=== PATIENT | female | born 1970 | race African-American/Black ===

== ENCOUNTER 2017-06-07 07:41 | Emergency (ER) | payer OTHER ==
[~2017-06-07] VITALS: Ht 172.7 cm; Wt 70.3 kg
--- NOTE | ~2017-06-07 | EKG ---
[address] [place] [address] ELECTROCARDIOGRAM REPORT Name: MADELINDARLINE JACQUELINE [id number] Admission: 06/07/17 Attend Phys: Discharge: 06/07/17 Date of : 66 Report #: [id number] THIS REPORT FOR: //name// [facility] ED Test Date: 2017-06-07 Test Time: 07:56:30 Pat Name: DARLINE YUSUF Department: Room: Gender: F Extension Course Coordinator: SHAWN : 1970 Requested By: Paulina Huerta Order Number: [id number] MD: Derrick Lion Measurements Intervals [place] Rate: 51 P: 37 VA: 139 QRS: -15 QRSD: 93 T: 76 QT: 416 QTc: 384 Interpretive Statements Sinus rhythm Borderline left axis deviation Low voltage, extremity and precordial leads Baseline wander in lead(s) I,III,aVL Compared to ECG 05/15/2016 13:08:33 Poor R-wave progression no longer present Electronically Signed On 06-07-2017 20:21:05 CDT by Derrick Lion [email or web address] <ELECTRONICALLY SIGNED> By: Derrick Lion MD 06/07/172020 0756 075 Derrick Lion MD /EPI
[~2017-06-07 07:41] MED LIST: ADVAIR 100-501 EACH INH; ADVAIR HFA 230M12 GM INH; ALBUTEROL2.5 MG/0.5 INH; ATIVAN0.5 MG PO; BACTRIM DS TAB1 EACH PO; COMPAZINE5 MG PO; DUONEB 2.5-0.5 M3 ML INH; GUAIFENESIN DM1 EACH PO; IBUPROFEN 800800 M1 PO; INCRUSE ELLI62.5 MCG IH; LEVAQUIN 500 M500 M2 PO; LEVSIN PO; MEDROLDOSEPACK; MILK OF MA2400 MG/10 PO; NICOTINE TRANSD21 M1; NORCO 5-325 TA1 EACH PO; NORFLEX100 MG PO; PREDNISONE 10 M10 MG PO; PREDNISONE 20 M20 MG PO; PREDNISONE50 MG PO; PRILOSEC 20 MG20 MG PO; PROTONIX40 M1 PO; SINGULAIR 10 MG10 M1 PO; TRAMADOL 50 MG50 MG PO; ULTRAM 50MG TAB50 MG PO; WELLBUTRIN XL150 MG PO; nicotine patch TRANSDERM
[2017-06-07] MEDS ORDERED: MOXIFLOXACIN3 ML OPHTHALMIC (08:18)
[2017-06-07] MEDS ORDERED: PROAIR HFA8.5 GM INH (08:18)
[2017-06-07] MEDS ORDERED: PREDNISONE50 MG PO (08:18)
[2017-06-07 08:59] LABS: BASOPHILS 0.5 % (0.0-2.0); EOSINOPHILS 1.5 % (0.0-3.0); HEMATOCRIT 44.1 % (37.0-47.0); HEMOGLOBIN 15.1 gm/dL (12.0-15.0); LYMPHOCYTES 28.7 % (24.0-44.0); MCH 34.1 pg (26.0-34.0); MCHC 34.3 g/dL (28.0-37.0); MCV 99.4 fL (80.0-100.0); MONOCYTES 8.9 % (1.0-8.0); POLYS 60.4 % (36.0-66.0); RBC 4.44 mil/uL (4.20-5.00); RDW 13.5 % (10.5-14.5)
[2017-06-07 09:01] LABS: MANUAL DIFF NO
[2017-06-07 09:27] LABS: PLATELET COUNT 169 thou/uL (150-400)
[2017-06-07 10:13] LABS: ANION GAP 5 mmol/L (7-16); BUN 6 mg/dL (7-18); CALCIUM 8.8 mg/dL (8.5-10.1); CHLORIDE 104 mmol/L (98-107); CO2 27 mmol/L (21-32); CREATININE 0.9 mg/dL (0.6-1.0); GLUCOSE 105 mg/dL (74-106); POTASSIUM 3.7 mmol/L (3.5-5.1); SODIUM 136 mmol/L (136-145)
[2017-06-07 10:22] LABS: TROPONIN-I < 0.04 ng/mL (<0.04-0.07)
== END 2017-06-07 10:36 | disposition home or self-care (01) ==
LOC: ER 07:41
PROVIDERS: Emergency Medicine
DX: J06.9 Acute upper respiratory infection, unspecified (principal); J98.01 Acute bronchospasm; H10.9 Unspecified conjunctivitis; F17.210 Nicotine dependence, cigarettes, uncomplicated; F10.99 Alcohol use, unspecified with unspecified alcohol-induced disorder; Z90.49 Acquired absence of other specified parts of digestive tract; Z90.710 Acquired absence of both cervix and uterus; Z88.1 Allergy status to other antibiotic agents

== ENCOUNTER 2017-09-21 16:05 | Emergency (ER) | payer OTHER ==
[~2017-09-21] VITALS: Ht 172.7 cm; Wt 64.9 kg
[~2017-09-21 16:05] MED LIST changes: +MOXIFLOXACIN3 ML OPHTHALMIC; +PROAIR HFA8.5 GM INH
[2017-09-21] MEDS ORDERED: NAPROSYN500 MG PO (16:41)
[2017-09-21] MEDS ORDERED: BUTALB-APAP-CA1 EACH PO (16:41)
[2017-09-21 17:52] VITALS: BP 132/96
[2017-09-21 17:56] LABS: CALCIUM 9.1 mg/dL (8.5-10.1); CREATININE 0.8 mg/dL (0.6-1.0); POTASSIUM 4.3 mmol/L (3.5-5.1)
== END 2017-09-21 17:57 | disposition home or self-care (01) ==
LOC: ER 16:05
PROVIDERS: Emergency Medicine
DX: R04.0 Epistaxis (principal); R51 Headache; R25.2 Cramp and spasm; J44.9 Chronic obstructive pulmonary disease, unspecified; Z88.1 Allergy status to other antibiotic agents; F17.210 Nicotine dependence, cigarettes, uncomplicated; Z90.710 Acquired absence of both cervix and uterus; Z90.49 Acquired absence of other specified parts of digestive tract

== ENCOUNTER 2018-03-22 21:39 | Emergency (ER) | payer OTHER ==
[~2018-03-22] VITALS: Ht 172.7 cm; Wt 72.6 kg
[~2018-03-22 21:39] MED LIST changes: +BUTALB-APAP-CA1 EACH PO; +NAPROSYN500 MG PO
[2018-03-22] MEDS ORDERED: FLEXERIL PO (22:55)
[2018-03-22] MEDS ORDERED: MOBIC15 MG PO (22:55)
== END 2018-03-22 23:04 | disposition home or self-care (01) ==
LOC: ER 21:39
DX: M79.605 Pain in left leg (principal); Z71.1 Person with feared health complaint in whom no diagnosis is made; J44.9 Chronic obstructive pulmonary disease, unspecified; Z90.49 Acquired absence of other specified parts of digestive tract; Z90.710 Acquired absence of both cervix and uterus; F17.210 Nicotine dependence, cigarettes, uncomplicated; Z88.1 Allergy status to other antibiotic agents

== ENCOUNTER 2019-08-03 13:25 | Emergency (ER) | payer OTHER ==
[~2019-08-03] VITALS: Ht 172.7 cm; Wt 70.3 kg
[~2019-08-03 13:25] MED LIST changes: +FLEXERIL PO; +MOBIC15 MG PO
[2019-08-03 14:26] LABS: BASOPHILS 0.4 % (0.0-2.0); EOSINOPHILS 1.3 % (0.0-3.0); HEMATOCRIT 40.4 % (37.0-47.0); HEMOGLOBIN 13.4 gm/dL (12.0-15.0); LYMPHOCYTES 41.5 % (24.0-44.0); MCH 32.9 pg (26.0-34.0); MCHC 33.3 g/dL (28.0-37.0); MCV 98.9 fL (80.0-100.0); MONOCYTES 8.4 % (1.0-8.0); PLATELET COUNT 179 thou/uL (150-400); POLYS 48.4 % (36.0-66.0); RBC 4.08 mil/uL (4.20-5.00); RDW 13.1 % (10.5-14.5); WBC 4.1 thou/uL (4.0-11.0)
[2019-08-03 14:35] LABS: POTASSIUM 4.2 mmol/L (3.5-5.1)
[2019-08-03 14:40] LABS: TOTAL BILIRUBIN 0.4 mg/dL (<0.1-1.0); TOTAL PROTEIN 7.5 g/dL (6.4-8.2)
[2019-08-03] MEDS ORDERED: PREDNISONE 10 M10 M1 PO ×2 (15:52→18:13)
[2019-08-03] MEDS ORDERED: DOXYCYCLINE 10100 MG PO ×2 (15:52→18:13)
[2019-08-03] MEDS ORDERED: ATIVAN0.5 M1 PO (16:03)
[2019-08-03] MEDS ORDERED: ATIVAN1 M1 PO (18:43)
[2019-08-03 18:56] VITALS: BP 112/72
--- NOTE | 2019-08-04 11:15 | EKG ---
[address] [address] ELECTROCARDIOGRAM REPORT Name: DARLINE YUSUF [facility] [id number] Admission: 08/03/19 Attend Phys: Discharge: 08/03/19 Date of : 66 Report #: [id number] THIS REPORT FOR: //name// [facility] ED Test Date: 2019-08-03 Test Time: 14:07:16 Pat Name: DARLINE YUSUF Department: Room: Gender: F Nursing Clinical Director: linda : 1970 Requested By: Oliva Jimenez Order Number: [id number] MD: Derrick Lion Measurements Intervals [place] Rate: 61 P: 69 ID: 142 QRS: 5 QRSD: 99 T: 73 QT: 410 QTc: 413 Interpretive Statements Sinus rhythm Anteroseptal infarct, old Compared to ECG 06/07/2017 07:56:30 Myocardial infarct finding now present Electronically Signed On 08-04-2019 11:15:23 CNC MILL OPERATOR by Derrick Lion [email or web address] <ELECTRONICALLY SIGNED> By: Derrick Lion MD 08/04/19 1115 06 06 Derrick Lion MD /JOVI
== END 2019-08-03 18:56 | disposition home or self-care (01) ==
LOC: ER 13:25
PROVIDERS: Physician Assistant
DX: J44.1 Chronic obstructive pulmonary disease with (acute) exacerbation (principal); R07.89 Other chest pain; R10.12 Left upper quadrant pain; F17.210 Nicotine dependence, cigarettes, uncomplicated; Z88.1 Allergy status to other antibiotic agents; Z79.899 Other long term (current) drug therapy; Z90.710 Acquired absence of both cervix and uterus; Z90.49 Acquired absence of other specified parts of digestive tract; Z86.711 Personal history of pulmonary embolism; Z79.01 Long term (current) use of anticoagulants

== ENCOUNTER 2019-09-04 17:42 | Inpatient (IN) | payer OTHER ==
[~2019-09-04] VITALS: Ht 172.7 cm; Wt 72.3 kg
[~2019-09-04 17:42] MED LIST changes: +ATIVAN0.5 M1 PO; +ATIVAN1 M1 PO; +DOXYCYCLINE 10100 MG PO; +PREDNISONE 10 M10 M1 PO
[2019-09-04 17:54] VITALS: BP 93/71
[2019-09-04 18:12] LABS: ABSOLUTE NEUTROPHILS 4.7 thou/uL (1.4-8.2); BASOPHILS 0.7 % (0.0-2.0); EOSINOPHILS 1.5 % (0.0-3.0); HEMOGLOBIN 15.1 gm/dL (12.0-15.0); LYMPHOCYTES 35.1 % (24.0-44.0); MCH 33.4 pg (26.0-34.0); MCHC 33.6 g/dL (28.0-37.0); MCV 99.5 fL (80.0-100.0); PLATELET COUNT 206 thou/uL (150-400); POLYS 55.7 % (36.0-66.0); RBC 4.53 mil/uL (4.20-5.00); RDW 13.4 % (10.5-14.5); WBC 8.5 thou/uL (4.0-11.0)
[2019-09-04 18:27] LABS: ANION GAP 11 mmol/L (7-16); BUN 18 mg/dL (7-18); CALCIUM 10.5 mg/dL (8.5-10.1); CHLORIDE 106 mmol/L (98-107); CO2 23 mmol/L (21-32); CREATININE 1.2 mg/dL (0.6-1.0); GLUCOSE 126 mg/dL (74-106); SODIUM 140 mmol/L (136-145)
[2019-09-04] MEDS ORDERED: SYMBICORT160 MCG/4. INH (18:30)
[2019-09-04 18:33] LABS: D-DIMER 0.26 ug/mLFEU (0.19-0.50); INR 1.1; PROTIME 10.8 Seconds (9.3-11.4)
[2019-09-04 18:36] LABS: ALBUMIN 3.7 g/dL (3.4-5.0); SGOT 18 U/L (15-37); SGPT 20 U/L (30-65); TOTAL BILIRUBIN 0.3 mg/dL (<0.1-1.0); TOTAL PROTEIN 7.3 g/dL (6.4-8.2); TROPONIN-I <0.06 ng/mL (<0.06)
--- NOTE | 2019-09-04 23:33 | NUR ---
CALL REPORT TO ALEXYS HEWITT.
[2019-09-04 23:45] VITALS: BP 102/71
[2019-09-04 23:58] LABS: CHOLESTEROL 220 mg/dL (<200); HDL CHOLESTEROL 84 mg/dL (>40); LDL CHOLESTEROL 84 mg/dL (<100); TC:HDL 2.6 Ratio (Not establshd); TRIGLYCERIDE 263 mg/dL (<150); VLDL 53 mg/dL (<40)
[2019-09-05] VITALS: BP 114/82
[2019-09-05] LABS: SERUM ASSESSMENT Moderate Lipemia
[2019-09-05 03:54] VITALS: BP 116/70
--- NOTE | 2019-09-05 04:07 | NUR ---
PATIENT ADMITTED TO FLOOR AROUND 0000. PT OXYGEN SATURATION 100% ON ROOM AIR. PT C/O CHEST PAIN. STATED "FEELS LIKE SOMETHING IS JUST SITTING ON MY CHEST" PROVIDED PAIN MEDICATION WHICH PROVIDED PARTIAL RELIEF. PT ADMISSION AND CONSENTS SIGNED. PT IS NPO AND ONLY SIPS WITH MEDICATIONS. PT IS UNSTEADY AND ADVISED TO CALL PRIOR TO GETTING UP. PT RESTING IN BED WITH MINIMAL INTERRUPTIONS. MONITORING PT PER POC.
[2019-09-05 05:16] LABS: ANION GAP 10 mmol/L (7-16); BUN 16 mg/dL (7-18); CHLORIDE 108 mmol/L (98-107); CO2 21 mmol/L (21-32); CREATININE 0.8 mg/dL (0.6-1.0); GLUCOSE 159 mg/dL (74-106); SODIUM 139 mmol/L (136-145)
[2019-09-05 05:25] LABS: TROPONIN-I <0.06 ng/mL (<0.06)
[2019-09-05 06:14] LABS: CALCIUM 8.2 mg/dL (8.5-10.1)
[2019-09-05 07:30] VITALS: BP 114/75
--- NOTE | 2019-09-05 08:50 | EKG ---
[address] [address] [address] [place] [address] ELECTROCARDIOGRAM REPORT Name: DARLINE YUSUF Room #: 212-P ADM IN M.R.#: [id number] Admission: 09/04/19 Attend Phys: Gary Maxwell MD Discharge: Date of : 66 Report #: [id number] THIS REPORT FOR: //name// [facility] ED Test Date: 2019-09-04 Test Time: 17:50:30 Pat Name: DARLINE YUSUF Department: Room: [facility] Gender: F Cloth Laminating Supervisor: ANAIS : 1970 Requested By: Patrick Santos Order Number: [id number] MD: Stephen Brower Measurements Intervals [place] Rate: 167 P: 0 KS: QRS: -71 QRSD: 109 T: 65 QT: 280 QTc: 467 Interpretive Statements Supraventricular tachycardia Poor R wave progression Low voltage Compared to ECG 08/03/2019 14:07:16 Sinus rhythm no longer present Electronically Signed On 09-05-2019 8:49:27 MAGNETIC TAPE TYPEWRITER OPERATOR by Stephen Brower [email or web address] <ELECTRONICALLY SIGNED> By: Stephen Brower MD, [facility] 09/05/19 0849 49 49 Stephen Brower MD, [facility] /EPI
--- NOTE | 2019-09-05 08:51 | EKG ---
[place] [address] [address] [employer] [place] [address] ELECTROCARDIOGRAM REPORT Name: DARLINE YUSUF Room #: 212-P ADM IN M.R.#: [id number] Admission: 09/04/19 Attend Phys: Gary Maxwell MD Discharge: Date of : 66 Report #: [id number] THIS REPORT FOR: //name// [facility] ED Test Date: 2019-09-04 Test Time: 20:39:47 Pat Name: DARLINE YUSUF Department: Room: [facility] Gender: F Rock Dust Sprayer: MARTINEZ : 1970 Requested By: Patrick Santos Order Number: [id number] MD: Stephen Brower Measurements Intervals [place] Rate: 76 P: 65 DE: 153 QRS: -6 QRSD: 84 T: 69 QT: 380 QTc: 428 Interpretive Statements Sinus rhythm Ventricular premature complex Low voltage, extremity and precordial leads Compared to ECG 08/03/2019 14:07:16 PSVT has no longer present Electronically Signed On 09-05-2019 8:50:58 GRINDER WATCH PARTS by Stephen Brower [email or web address] <ELECTRONICALLY SIGNED> By: Stephen Brower MD, [facility] 09/05/1950 38 38 Stephen Brower MD, [facility] /EPI
--- NOTE | 2019-09-05 09:00 | EKG ---
[address] [address] [employer] [place] [address] ELECTROCARDIOGRAM REPORT Name: DARLINE YUSUF Room #: 212- ADM IN M.R.#: [id number] Admission: 09/04/19 Attend Phys: Gary Maxwell MD Discharge: Date of : 66 Report #: [id number] THIS REPORT FOR: //name// [facility] Test Date: 2019-09-05 Test Time: 07:21:32 Pat Name: DARLINE YUSUF Department: Room: 212 Gender: F Acid Polymerization Operator: JEFF : 1970 Requested By: Anna Marie Mckenna Order Number: [id number] MD: Stephen Brower Measurements Intervals [place] Rate: 53 P: 47 LA: 147 QRS: -14 QRSD: 87 T: 75 QT: 419 QTc: 394 Interpretive Statements Sinus rhythm Anterior infarct, old Nonspecific T abnormalities Compared to ECG 08/03/2019 14:07:16 T-wave abnormality now present Electronically Signed On 09-05-2019 8:59:46 MANAGER DOMESTIC by Stephen Brower [email or web address] <ELECTRONICALLY SIGNED> By: Stephen Brower MD, [facility] 09/05/19 0859 0 0 Stephen Brower MD, [facility] /EPI
--- NOTE | 2019-09-05 11:18 | 2DMMODE ---
[facility] [address] [place] [address] 2 D/M-MODE ECHOCARDIOGRAM Name: DARLINE YUSUF Room #: 212-P ADM IN .R.#: [id number] Admission: 09/04/19 Attend Phys: Gary Maxwell MD Discharge: Date of : 66 Report #: [id number] THIS REPORT FOR: //name// APPROVED REPORT Study performed: 09/05/2019 10:35:17 EXAM: Comprehensive 2D, Doppler, and color-flow Echocardiogram Patient Location: Echo lab Room #: [facility] Status: routine BSA: 1.77 HR: 50 bpm BP: 114/75 mmHg Rhythm: Sinus kwaku, PVCs Other Information Study Quality: Adequate Indications Chest pain, heart palpitations. Hx: COPD. 2D Dimensions RVDd: 39.36 mm IVSd: 10.00 (7-11mm) LVOT Diam: 21.18 (18-24mm) LVDd: 48.00 mm PWd: 10.47 (7-11mm) Ascending Ao: 37.00 (22-36mm) LVDs: 32.16 (25-40mm) Aortic Root: 37.49 mm Volumes Left Atrial Volume (Systole) Single Plane 4CH: 45.57 mL Single Plane 2CH: 59.22 mL Aortic Valve AoV Peak Hernandez.: 1.43 m/s AO Peak Gr.: 8.23 mmHg LVOT Max P.25 mmHg LVOT Max V: 0.90 m/s ALY Vmax: 2.21 cm2 AI Vmax: 4.52 m/s AI Kidder: 1.65 m/s2 AI PHT: 793.82 ms Mitral Valve E/A Ratio: 1.3 [facility] [place] [address] 2 D/M-MODE ECHOCARDIOGRAM Name: DARLINE YUSUF JACQUELINE Room #: 212-[facility] IN [facility].#: [id number] Admission: 09/04/19 Attend Phys: Gary Maxwell MD Discharge: Date of : 66 Report #: [id number] MV Decel. Time: 203.82 ms MV E Max Hernandez.: 0.79 m/s MV A Hernandez.: 0.61 m/s MV PHT: 59.11 ms IVRT: 83.04 ms Pulmonary Valve PV Peak Hernandez.: 0.73 m/s PV Peak Gr.: 2.13 mmHg Pulmonary Vein P Vein S: 0.80 m/s P Vein A: 0.52 m/s P Vein D: 0.58 m/s P Vein S/D Ratio: 1.38 Tricuspid Valve TR Peak Hernandez.: 2.12 m/s RAP Estimate: 10.00 mmHg TR Peak Gr.: 18.00 mmHg PA Pressure: 28.00 mmHg Left Ventricle The left ventricle is normal size. There is normal LV segmental wall motion. There is normal left ventricular wall thickness. Left ventricular systolic function is normal. LVEF is 60-65%. The left ventricular diastolic function is normal. Right Ventricle The right ventricle is normal size. The right ventricular systolic function is normal. Atria Left atrium is at the upper limits of normal. The right atrium size is normal. Aortic Valve The aortic valve is normal in structure. Mild aortic regurgitation. There is no aortic valvular stenosis. Mitral Valve The mitral valve is normal in structure. Mild mitral regurgitation. No evidence of mitral valve stenosis. Tricuspid Valve The tricuspid valve is normal in structure. Mild tricuspid regurgitation. Estimated PAP is 25-30mmHg. Pulmonic Valve [facility] [address] [place] [address] 2 D/M-MODE ECHOCARDIOGRAM Name: DARLINE YUSUF JACQUELINE Room #: 212-P [facility] IN ..#: [id number] Admission: 09/04/19 Attend Phys: Gary Maxwell MD Discharge: Date of : 66 Report #: [id number] The pulmonary valve is normal in structure. Mild pulmonic regurgitation. Great Vessels The aortic root is normal in size. IVC is normal in size and collapses <50% with inspiration. Pericardium There is no pericardial effusion. <Conclusion> The left ventricle is normal size. LVEF is 60-65%. Left atrium is at the upper limits of normal. The aortic valve is normal in structure. Mild aortic regurgitation. The mitral valve is normal in structure. Mild mitral regurgitation. The tricuspid valve is normal in structure. Mild tricuspid regurgitation. Estimated PAP is 25-30mmHg. The pulmonary valve is normal in structure. Mild pulmonic regurgitation. There is no pericardial effusion. <ELECTRONICALLY SIGNED> By: Gómez Chavez MD 09/05/19 1118 1118 1118 Gómez Chavez MD /INF
[2019-09-05 14:40] VITALS: BP 125/93
--- NOTE | 2019-09-05 16:20 | NUR ---
ASSUMED CARE PT SHIFT CHANGE. ASSESSMENT CHARTED. MEDS GIVEN PER OCT. PT ALERT AND ORIENTED. VSS. C/O CHEST PAIN-MANAGED WITH IV PAIN MEDS. PT TO HAVE ECHO AND STRESS TEST THIS SHIFT. PT BACK FROM STRESS TEST. UPSET THAT SHE COULD NOT LEAVE THE UNIT WHILE NOT BEING MONITORED ON TELE. EDUCATED ON IMPORTANCE OF TELEMETRY MONITORING, AND IMPORTANCE OF BEING ON TELEMETRY WHILE BEING TREATED FOR POTENTIAL CARDIAC EVENTS. PT ADAMENT IN HAVING A DIFFERENT NURSE TO CARE FOR HER. PT DID NOT WANT TO BE CARED FOR BY OTHER NURSE. MARKETER EV AND ELDER RUTLEDGE SPOKE WITH PT, ISSUES RESOLVED FOR NOW. PT REQUESTING CARE FROM A DIFFERENT NURSE. REPORT GIVEN TO NURSE ALEXANDER.
[2019-09-05 20:03] VITALS: BP 128/79
[2019-09-06 00:09] LABS: GLYCOHEMOGLOBIN (HGB A1C) 5.6 % (4.8-5.6)
[2019-09-06 03:37] VITALS: BP 104/73
--- NOTE | 2019-09-06 05:44 | NUR ---
ASSUMED PT CARE AROUND 1909. PT WAS NOT IN ROOM AND HAD WENT OF UNIT DURING SHIFT CHANGE. WHEN PATIENT WAS ESCORTED BACK TO ROOM PT WAS ADVISED OF THE UNIT RULES REGARDING TELEMETRY AND GOING OFF THE UNIT. PT STATED "NOT HAPPY WITH THE CARE BEING PROVIDED AND BEING TREATED LIKE A CHILD". NURSE TRIED TO EDUCATE PATIENT REGARDING WHY THE RULES ARE IN PLACE TO KEEP HER SAFE. PT NOT SATISFIED WITH THE EDUCATION PROVIDED. MONITORED PATIENT THRU NIGHT AND PROVIDED CARES WITH MINIMAL INTERRUPTIONS. WILL CONTINUE TO MONITOR PT PER POC.
[2019-09-06 08:30] VITALS: BP 118/81
[2019-09-06] MEDS ORDERED: METOPROLOL SUCC25 M1 PO (10:31)
[2019-09-06] MEDS ORDERED: ATIVAN1 M1 PO (10:31)
[2019-09-06] MEDS ORDERED: ASPIR 8181 MG PO (10:32)
[2019-09-06 10:56] VITALS: BP 118/81
[2019-09-06 11:16] VITALS: BP 118/81
--- NOTE | 2019-09-06 11:31 | NUR ---
ASSUMED CARE OF PT AT SHIFT CHANGE. ASSESSMENT CHARTED. MEDS GIVEN PER OCT. VSS. PT A&OX4. NO C/O PAIN OR SOA. DISCHARGE ORDERS AND INSTRUCTIONS COMPLETE. TELE AND IV DC'D. PT LEFT TO OWN CAR IN PARKING LOT.
== END 2019-09-06 11:18 | disposition home or self-care (01) | DRG 310 ==
LOC: ER 17:42 → EROBS 22:21 → 2N 22:21
PROVIDERS: Emergency Medicine; Nurse Practitioner Family; ADMIT Hospitalist
DX: I47.1 Supraventricular tachycardia (principal); J44.9 Chronic obstructive pulmonary disease, unspecified; F17.210 Nicotine dependence, cigarettes, uncomplicated; F41.9 Anxiety disorder, unspecified; Z86.718 Personal history of other venous thrombosis and embolism; Z79.899 Other long term (current) drug therapy; Z88.1 Allergy status to other antibiotic agents; Z90.710 Acquired absence of both cervix and uterus; Z90.49 Acquired absence of other specified parts of digestive tract; Z86.711 Personal history of pulmonary embolism; Z71.6 Tobacco abuse counseling
CPT/HCPCS: 10081

== ENCOUNTER 2020-02-12 15:25 | Emergency (ER) | payer OTHER ==
[~2020-02-12] VITALS: Ht 172.7 cm; Wt 70.3 kg
[~2020-02-12 15:25] MED LIST changes: +ASPIR 8181 MG PO; +METOPROLOL SUCC25 M1 PO; +SYMBICORT160 MCG/4. INH
[2020-02-12 16:00] LABS: ABSOLUTE NEUTROPHILS 2.2 thou/uL (1.4-8.2); BASOPHILS 0.3 % (0.0-2.0); EOSINOPHILS 1.9 % (0.0-3.0); HEMOGLOBIN 14.1 gm/dL (12.0-15.0); LYMPHOCYTES 43.4 % (24.0-44.0); MCH 34.1 pg (26.0-34.0); MCHC 34.4 g/dL (28.0-37.0); MCV 99.3 fL (80.0-100.0); PLATELET COUNT 151 thou/uL (150-400); POLYS 47.4 % (36.0-66.0); RBC 4.13 mil/uL (4.20-5.00); WBC 4.6 thou/uL (4.0-11.0)
[2020-02-12 16:08] LABS: ANION GAP 8 mmol/L (7-16); BUN 15 mg/dL (7-18); CHLORIDE 102 mmol/L (98-107); CO2 26 mmol/L (21-32); GLUCOSE 78 mg/dL (74-106); POTASSIUM 3.7 mmol/L (3.5-5.1); SODIUM 136 mmol/L (136-145)
[2020-02-12 16:18] LABS: ALBUMIN 3.8 g/dL (3.4-5.0); SGOT 25 U/L (15-37); SGPT 22 U/L (30-65); TOTAL BILIRUBIN 0.7 mg/dL (0.2-1.0); TOTAL PROTEIN 6.9 g/dL (6.4-8.2); TROPONIN-I <0.06 ng/mL (<0.06)
[2020-02-12] MEDS ORDERED: SPIRIVA INH (16:24)
[2020-02-12] MEDS ORDERED: PROAIR HFA8.5 GM INH (16:25)
[2020-02-12] MEDS ORDERED: TRAMADOL 50 MG50 MG PO (16:33)
[2020-02-12] MEDS ORDERED: NAPROXEN375 MG PO (16:33)
[2020-02-12 16:50] VITALS: BP 139/82
--- NOTE | 2020-02-13 07:42 | EKG ---
[facility] [place] [address] ELECTROCARDIOGRAM REPORT Name: DARLINE YUSUF Room #: DEP [facility]#: [id number] Admission: 02/12/20 Attend Phys: Discharge: 02/12/20 Date of : 66 Report #: [id number] THIS REPORT FOR: cc: Jaison Chen MD, Harry MD Lundgren,Stephen Granado MD [facility] ~ THIS REPORT FOR: //name// [facility] ED Test Date: 2020-02-12 Test Time: 15:32:19 Pat Name: DARLINE YUSUF Department: Room: Gender: Bus Escort: SAIDA : 1970 Requested By: Order Number: [id number] MD: Stephen Brower Measurements Intervals [place] Rate: 66 P: 63 [place]: 155 QRS: -14 QRSD: 96 T: 53 QT: 376 QTc: 394 Interpretive Statements Sinus rhythm Low voltage, precordial leads Probable anteroseptal infarct, old Compared to ECG 09/05/2019 07:21:32 T wave abnormalities no longer present Electronically Signed On 02-13-2020 7:29:50 CDT by Stephen Brower [email or web address] <ELECTRONICALLY SIGNED> By: Stephen Brower MD, [facility] 02/13/20 0729 1532 1532 Stephen Brower MD, [facility] /EPI
== END 2020-02-12 16:50 | disposition home or self-care (01) ==
LOC: ER 15:25
PROVIDERS: Emergency Medicine
DX: I47.1 Supraventricular tachycardia (principal); R07.89 Other chest pain; Q67.6 Pectus excavatum; J44.9 Chronic obstructive pulmonary disease, unspecified; F17.210 Nicotine dependence, cigarettes, uncomplicated; Z88.1 Allergy status to other antibiotic agents; Z79.899 Other long term (current) drug therapy; Z79.82 Long term (current) use of aspirin; Z90.710 Acquired absence of both cervix and uterus; Z90.49 Acquired absence of other specified parts of digestive tract

== ENCOUNTER 2020-10-29 12:06 | Emergency (ER) | payer OTHER ==
[~2020-10-29] VITALS: Ht 172.7 cm; Wt 68.0 kg
[~2020-10-29 12:06] MED LIST changes: +NAPROXEN375 MG PO; +SPIRIVA INH
[2020-10-29 12:39] LABS: HEMATOCRIT 40.1 % (37.0-47.0); HEMOGLOBIN 13.5 gm/dL (12.0-15.0); MCH 33.9 pg (26.0-34.0); MCHC 33.7 g/dL (28.0-37.0); MCV 100.5 fL (80.0-100.0); RBC 3.99 mil/uL (4.20-5.00); RDW 13.6 % (10.5-14.5); WBC 6.2 thou/uL (4.0-11.0)
[2020-10-29 12:45] LABS: ANION GAP 9 mmol/L (7-16); BUN 15 mg/dL (7-18); CHLORIDE 101 mmol/L (98-107); CO2 25 mmol/L (21-32); GLUCOSE 103 mg/dL (74-106); POTASSIUM 3.9 mmol/L (3.5-5.1); SODIUM 135 mmol/L (136-145)
[2020-10-29 12:56] LABS: ALBUMIN 4.1 g/dL (3.4-5.0); SGOT 22 U/L (15-37); SGPT 20 U/L (30-65); TOTAL BILIRUBIN 0.4 mg/dL (0.2-1.0); TOTAL PROTEIN 7.6 g/dL (6.4-8.2); TROPONIN-I <0.06 ng/mL (<0.06)
[2020-10-29 14:25] VITALS: BP 129/82
--- NOTE | 2020-10-30 07:11 | EKG ---
[place] [address] [facility] [facility] [place] [address] ELECTROCARDIOGRAM REPORT Name: DARLINE YUSUF [facility] [id number] Admission: 10/29/20 Attend Phys: Discharge: 10/29/20 Date of : [birth year] Report #: [id number] [facility] ED Test Date: 2020-10-29 Test Time: 12:28:33 Pat Name: DARLINE YUSUF Department: Room: Gender: F Director Data Architecture: JEWEL : 1970 Requested By: Radha Bocanegra Order Number: [id number] MD: William Harding Measurements Intervals [place] Rate: 59 P: 52 TN: 144 QRS: -31 QRSD: 92 T: 61 QT: 401 QTc: 398 Interpretive Statements Sinus rhythm Left axis deviation Compared to ECG 02/12/2020 15:32:19 Left-axis deviation now present Myocardial infarct finding no longer present Electronically Signed On 10-30-2020 7:11:19 COST CONTROLLER by William Harding [email or web address] <ELECTRONICALLY SIGNED> By: William Harding MD, [facility] 10/30/20 0711 1228 1228 William Harding MD, [facility] /EPI
== END 2020-10-29 14:48 | disposition left against medical advice (07) ==
LOC: ER 12:06
PROVIDERS: Nurse Practitioner Family
DX: R55 Syncope and collapse (principal); J44.9 Chronic obstructive pulmonary disease, unspecified; Z90.49 Acquired absence of other specified parts of digestive tract; Z90.710 Acquired absence of both cervix and uterus; F17.210 Nicotine dependence, cigarettes, uncomplicated; Z79.899 Other long term (current) drug therapy; Z88.1 Allergy status to other antibiotic agents